=== PATIENT | male | born 1935 | race Two or more races ===

== ENCOUNTER 2017-12-05 09:57 | Emergency (ER) | payer OTHER ==
[~2017-12-05] VITALS: Ht 170.2 cm; Wt 85.0 kg
[2017-12-05] MEDS ORDERED: GLIP5TAB12 PO (10:13)
[2017-12-05] MEDS ORDERED: CHOL100044 MT (10:13)
[2017-12-05] MEDS ORDERED: FINA5TAB11 PO (10:13)
[2017-12-05] MEDS ORDERED: ATOR40TA70 PO (10:13)
[2017-12-05] MEDS ORDERED: TAMS0.4C31 PO (10:13)
[2017-12-05] MEDS ORDERED: CHOL500010 PO (10:13)
[2017-12-05] MEDS ORDERED: METO25TA6 PO (10:13)
[2017-12-05] MEDS ORDERED: LEVO75TA7 PO (10:13)
[2017-12-05] MEDS ORDERED: ALLO100T PO (10:13)
[2017-12-05] MEDS ORDERED: ASPI-1159 PO (10:13)
[2017-12-05 13:15] VITALS: BP 136/82
== END 2017-12-05 13:19 | disposition home or self-care (01) ==
LOC: ER 09:57
DX: S09.8XXA Other specified injuries of head, initial encounter (principal); S43.492A Other sprain of left shoulder joint, initial encounter; E11.9 Type 2 diabetes mellitus without complications; M10.9 Gout, unspecified; E03.9 Hypothyroidism, unspecified; I67.82 Cerebral ischemia; Z79.82 Long term (current) use of aspirin; Z79.84 Long term (current) use of oral hypoglycemic drugs; Z85.038 Personal history of other malignant neoplasm of large intestine; Z98.890 Other specified postprocedural states; W01.0XXA Fall on same level from slipping, tripping and stumbling without subsequent striking against object, initial encounter; Y93.89 Activity, other specified; Y92.488 Other paved roadways as the place of occurrence of the external cause
CPT/HCPCS: 70450; 73030; 73060; 99284

== ENCOUNTER 2019-06-12 07:54 | Emergency (ER) | payer OTHER ==
[~2019-06-12] VITALS: Ht 167.6 cm; Wt 80.0 kg
[~2019-06-12 07:54] MED LIST: ALLO100T PO; ASPI-1393 PO; ATOR40TA70 PO; CHOL100044 MT; CHOL500010 PO; FINA5TAB11 PO; GLIP5TAB12 PO; LEVO75TA7 PO; METO25TA6 PO; TAMS0.4C31 PO
[2019-06-12] MEDS ORDERED: SODIUM CHLORIDE 0.9% 1,000 ML IV ONE (08:10)
[2019-06-12] MEDS ORDERED: ONDANSETRON HCL 4MG/2ML INJ IV STA (08:10)
[2019-06-12] MEDS ORDERED: VANCOMYCIN 1 G PREMIX 200 ML IV ONE (08:15)
[2019-06-12] MEDS ORDERED: PIPERACILLIN/TAZ 3.375G PREMIX 50 ML IV ONE (08:15)
[2019-06-12] MEDS ORDERED: SODIUM CHLORIDE 0.9% 500 ML IV ONE (08:15)
[2019-06-12 08:37] LABS: HEMATOCRIT. 37.2 % (42.0-52.0); HEMOGLOBIN. 12.1 g/dL (14.0-18.0); MEAN CORPUSCULAR HEMOGLOBIN 29.7 pg (28.0-32.0); MEAN CORPUSCULAR VOLUME 91.3 fL (80.0-94.0); MEAN PLATELET VOLUME 8.7 fl (7.4-10.4); PLATELET 493 x1000/uL (130-400); RED BLOOD CELL COUNT 4.08 mill/uL (4.7-6.1); RED CELL DISTRIBUTION WIDTH 15.7 % (11.6-14.6)
[2019-06-12 08:40] LABS: CHLORIDE 106 mEq/L (98-107)
[2019-06-12 08:45] LABS: ETHANOL BLOOD < 10 mg/dL
[2019-06-12 08:53] LABS: INR 1.3; PROTHROMBIN TIME 13.4 sec (9.6-11.0)
[2019-06-12 09:14] LABS: PLATELET ESTIMATE INCREASED
[2019-06-12] MEDS ORDERED: IOHEXOL-300 100 ML BOTTLE ONE (09:52)
[2019-06-12] MEDS ORDERED: FURO-152 PO (10:05)
[2019-06-12 14:14] VITALS: BP 96/59
== END 2019-06-12 15:04 | disposition short-term general hospital (02) ==
LOC: ER 07:54 → EDBEDREQSVC 09:38 → CANBEDREQ 14:20 → ER 15:04
DX: K55.059 Acute (reversible) ischemia of intestine, part and extent unspecified (principal); R65.20 Severe sepsis without septic shock; R41.82 Altered mental status, unspecified; E11.9 Type 2 diabetes mellitus without complications; I25.2 Old myocardial infarction; E03.9 Hypothyroidism, unspecified; I51.9 Heart disease, unspecified; Z95.1 Presence of aortocoronary bypass graft; Z79.899 Other long term (current) drug therapy; Z79.82 Long term (current) use of aspirin
CPT/HCPCS: 36415; 71045; 74177; 76705; 80053; 80320; 83605; 83690; 84484; 85025; 85610; 87040; 87077; 87186; 87804; 93005; 96365; 96367; 96375; 99291; J2405; J2543; J3370; J7030; J7040; Q9967; 96372; G0480

== ENCOUNTER 2020-06-12 06:42 | Emergency (ER) | payer OTHER ==
[~2020-06-12] VITALS: Ht 170.2 cm; Wt 85.0 kg
[~2020-06-12 06:42] MED LIST changes: -ASPI-1393 PO; +ASPI-1497 PO; +FURO-152 PO
[2020-06-12 07:37] LABS: HEMATOCRIT. 35.8 % (42.0-52.0); HEMOGLOBIN. 11.9 g/dL (14.0-18.0); MEAN CORPUSCULAR HEMOGLOBIN 32.5 pg (28.0-32.0); MEAN CORPUSCULAR VOLUME 97.5 fL (80.0-94.0); MEAN PLATELET VOLUME 10.2 fl (7.4-10.4); PLATELET 473 x1000/uL (130-400); RED BLOOD CELL COUNT 3.67 mill/uL (4.7-6.1); RED CELL DISTRIBUTION WIDTH 16.5 % (11.6-14.6)
[2020-06-12 07:40] LABS: CHLORIDE 101 mEq/L (98-107)
[2020-06-12 08:18] LABS: INR 2.4
[2020-06-12 08:22] LABS: PROTHROMBIN TIME 23.9 sec (9.6-11.0)
[2020-06-12] MEDS ORDERED: SODIUM CHLORIDE 0.9% 1,000 ML IV ONE (09:00)
[2020-06-12 09:48] LABS: CLARITY URINE CLOUDY (CLEAR); COLOR URINE YELLOW (YELLOW); KETONES URINE NEGATIVE (NEGATIVE); LEUKOCYTE ESTERASE URINE 2+ (NEGATIVE); NITRITE URINE POSITIVE (NEGATIVE); OCCULT BLOOD URINE 1+ (NEGATIVE); PROTEIN URINE 1+ (NEGATIVE); SPECIFIC GRAVITY URINE 1.019 (1.005-1.030); UROBILINOGEN URINE 0.2 E.U./dL (0.2-1.0)
[2020-06-12 09:55] LABS: PLATELET ESTIMATE INCREASED
[2020-06-12 10:33] LABS: INR 1.1; PROTHROMBIN TIME 11.9 sec (9.6-11.0)
[2020-06-12 11:07] VITALS: BP 136/76
[2020-06-12] MEDS ORDERED: CEFTRIAXONE 1 G PREMIX 50 ML IV ONE (11:30)
== END 2020-06-12 12:06 | disposition short-term general hospital (02) ==
LOC: ER 06:42
DX: N39.0 Urinary tract infection, site not specified (principal); R53.1 Weakness; D72.829 Elevated white blood cell count, unspecified; N19 Unspecified kidney failure; E11.9 Type 2 diabetes mellitus without complications; E05.90 Thyrotoxicosis, unspecified without thyrotoxic crisis or storm; Z95.1 Presence of aortocoronary bypass graft; Z79.82 Long term (current) use of aspirin
CPT/HCPCS: 36415; 71045; 80053; 81003; 83605; 83880; 84484; 85025; 85610; 87086; 87186; 93005; 96361; 96365; 99285; J0696; J7030

== ENCOUNTER 2020-08-12 16:02 | Inpatient (IN) | payer OTHER ==
[~2020-08-12] VITALS: Ht 175.3 cm; Wt 79.5 kg
[2020-08-12] MEDS ORDERED: ACETAMINOPHEN 325MG TABLET PO STA (16:05)
[2020-08-12] MEDS ORDERED: SODIUM CHLORIDE 0.9% 500 ML IV ONE (16:30)
[2020-08-12 17:07] LABS: BG BASE EXCESS -5.2 mmol/L (-2.0-2.0); BG CARBOXYHEMOGLOBIN 1.2 % (0.5-1.5); BG DEOXYHEMOGLOBIN 4.4 % (0.0-5.0); BG FRACTION INSPIRED OXYGEN 21; BG OXYGEN SATURATION 95.5 % (92.0-98.5); BG OXYHEMOGLOBIN 94.4 % (94.0-97.0); BG PCO2 37.9 mmHg (35.0-45.0); BG SAMPLE SITE RIGHT BRACHIAL; BG TOTAL HEMOGLOBIN 11.9 g/dL (12.0-18.0); BG VENT MODE ROOM AIR
[2020-08-12] MEDS ORDERED: CEFTRIAXONE 1 G PREMIX 50 ML IV ONE (17:30)
[2020-08-12] MEDS ORDERED: AZITHROMYCIN 500 MG in DEXT 5% WATER 250 ML IV STA (17:30)
[2020-08-12 17:39] LABS: HEMATOCRIT. 34.9 % (42.0-52.0); HEMOGLOBIN. 11.3 g/dL (14.0-18.0); MEAN CORPUSCULAR HEMOGLOBIN 33.7 pg (28.0-32.0); PLATELET 530 x1000/uL (130-400); RED BLOOD CELL COUNT 3.36 mill/uL (4.7-6.1); RED CELL DISTRIBUTION WIDTH 15.7 % (11.6-14.6)
[2020-08-12 17:45] LABS: CHLORIDE 103 mEq/L (98-107)
[2020-08-12 17:55] LABS: CLARITY URINE TURBID (CLEAR); COLOR URINE YELLOW (YELLOW); CREATINE KINASE 227 IU/L (39-308); KETONES URINE NEGATIVE (NEGATIVE); LEUKOCYTE ESTERASE URINE 3+ (NEGATIVE); NITRITE URINE NEGATIVE (NEGATIVE); OCCULT BLOOD URINE 1+ (NEGATIVE); PROTEIN URINE 1+ (NEGATIVE); SPECIFIC GRAVITY URINE 1.014 (1.005-1.030)
[2020-08-12 18:06] LABS: D-DIMER 4.93 mg/L FEU (<0.50)
[2020-08-12 18:15] LABS: PLATELET ESTIMATE INCREASED
[2020-08-12] MEDS ORDERED: FUROSEMIDE 20MG/2ML VIAL IVP ONE (18:15)
[2020-08-13] MEDS ORDERED: CLONIDINE 0.1MG TABLET PO PRN (09:45)
[2020-08-13] MEDS ORDERED: GUAIFENESIN 200MG/10ML SUGAR FREE UDC PO PRN (09:45)
[2020-08-13] MEDS ORDERED: ONDANSETRON HCL 4MG/2ML INJ IV PRN (09:45)
[2020-08-13] MEDS ORDERED: CEFTRIAXONE 1 G PREMIX 50 ML IV SCH (09:45)
[2020-08-13] MEDS ORDERED: ACETAMINOPHEN 325MG TABLET PO PRN (09:45)
[2020-08-13] MEDS ORDERED: MAGNESIUM/ALUMINUM HYDROXIDE/SIMETHICONE 30ML UDC PO PRN (09:45)
[2020-08-13] MEDS ORDERED: HYDROCODONE/ACETAMINOPHEN 5/325MG TABLET PO PRN (09:45)
[2020-08-13] MEDS ORDERED: AZITHROMYCIN 500 MG in DEXT 5% WATER 250 ML IV SCH ×2 (09:45→18:00)
[2020-08-13] MEDS ORDERED: ENOXAPARIN 40MG/0.4ML SYR SUBCUT SCH (09:45)
[2020-08-13] MEDS ORDERED: DOCUSATE SODIUM 100MG CAPSULE PO PRN (09:45)
[2020-08-13] MEDS ORDERED: CEFTRIAXONE 1,000 MG in DEXTROSE 5% WATER 50 ML IV SCH ×2 (10:00→18:00)
[2020-08-13] MEDS ORDERED: DEXTROSE 50% WATER 50ML SYRINGE IV PRN (11:00)
[2020-08-13] MEDS: BLOOD SUGAR DIAGNOSTIC STRIP TEST SCH ×3 (11:26→21:29)
[2020-08-13] MEDS: ALLOPURINOL 100 MG TABLET PO SCH (11:30)
[2020-08-13 12:00] VITALS: BP 130/68
[2020-08-13] MEDS: LEVOTHYROXINE SODIUM 75MCG TABLET PO SCH (13:21)
[2020-08-13] MEDS: SODIUM CHLORIDE 0.9% 1,000 ML IV SCH (13:21)
[2020-08-13] MEDS: FINASTERIDE 5MG TABLET PO SCH (13:21)
[2020-08-13] MEDS: INSULIN LISPRO 100 UNITS/ML SUBCUT SCH ×3 (13:24→21:45)
[2020-08-13] MEDS: TAMSULOSIN HCL 0.4MG SR CAPSULE PO SCH (13:25)
[2020-08-13 13:57] LABS: HEMATOCRIT. 35.3 % (42.0-52.0); HEMOGLOBIN. 11.6 g/dL (14.0-18.0); MEAN CORPUSCULAR HEMOGLOBIN 33.9 pg (28.0-32.0); MEAN PLATELET VOLUME 9.9 fl (7.4-10.4); PLATELET 580 x1000/uL (130-400); RED BLOOD CELL COUNT 3.43 mill/uL (4.7-6.1); RED CELL DISTRIBUTION WIDTH 15.2 % (11.6-14.6)
[2020-08-13 14:27] LABS: PLATELET ESTIMATE INCREASED
[2020-08-13 15:25] VITALS: BP 138/70
[2020-08-13 16:00] VITALS: BP 129/66
[2020-08-13] MEDS: CEFTAZIDIME PENTAHYDRATE 1 G in DEXTROSE 5% WATER 50 ML IV SCH (19:44)
[2020-08-13 20:00] VITALS: BP 129/63
[2020-08-14] VITALS: BP 127/62
[2020-08-14] MEDS: SODIUM CHLORIDE 0.9% 1,000 ML IV SCH ×2 (00:16→11:58)
[2020-08-14 04:00] VITALS: BP 128/56
[2020-08-14] MEDS: BLOOD SUGAR DIAGNOSTIC STRIP TEST SCH ×2 (06:19→11:56)
[2020-08-14] MEDS: LEVOTHYROXINE SODIUM 75MCG TABLET PO SCH (06:19)
[2020-08-14 06:43] LABS: CHLORIDE 108 mEq/L (98-107)
[2020-08-14 06:47] LABS: HEMATOCRIT. 33.4 % (42.0-52.0); HEMOGLOBIN. 10.9 g/dL (14.0-18.0); MEAN CORPUSCULAR HEMOGLOBIN 33.9 pg (28.0-32.0); MEAN CORPUSCULAR VOLUME 103.4 fL (80.0-94.0); MEAN PLATELET VOLUME 10.1 fl (7.4-10.4); PLATELET 591 x1000/uL (130-400); RED BLOOD CELL COUNT 3.23 mill/uL (4.7-6.1); RED CELL DISTRIBUTION WIDTH 15.5 % (11.6-14.6)
[2020-08-14 07:00] LABS: LDL CHOLESTEROL 34 mg/dL (5-100)
[2020-08-14 07:02] LABS: HDL CHOLESTEROL 36 mg/dL (40-59)
[2020-08-14 08:00] VITALS: BP 111/66
[2020-08-14] MEDS: CEFTAZIDIME PENTAHYDRATE 1 G in DEXTROSE 5% WATER 50 ML IV SCH (08:59)
[2020-08-14] MEDS: FINASTERIDE 5MG TABLET PO SCH (09:00)
[2020-08-14] MEDS ORDERED: ENOXAPARIN 30MG/0.3ML SYR SUBCUT SCH (09:00)
[2020-08-14] MEDS ORDERED: CEFTAZIDIME PENTAHYDRATE 1 G in DEXTROSE 5% WATER 50 ML IV SCH (09:00)
[2020-08-14] MEDS: TAMSULOSIN HCL 0.4MG SR CAPSULE PO SCH (09:00)
[2020-08-14] MEDS: INSULIN LISPRO 100 UNITS/ML SUBCUT SCH ×2 (09:01→12:02)
[2020-08-14 11:43] LABS: T4 FREE 1.2 ng/dL (0.76-1.46)
[2020-08-14] MEDS: ALLOPURINOL 100 MG TABLET PO SCH (11:56)
[2020-08-14 12:00] VITALS: BP 135/62
[2020-08-14 13:01] LABS: PLATELET ESTIMATE INCREASED
[2020-08-14 13:33] VITALS: BP 135/62
[2020-08-15 08:08] LABS: ANTI-NUCLEAR ANTIBODIES DIRECT Negative (Negative)
== END 2020-08-14 16:00 | disposition home or self-care (01) | DRG 871 ==
LOC: ER 16:02 → MICUSO 18:20 → EDBEDREQ 18:23 → 7EST 08-13 09:01
PROVIDERS: ADMIT Hospitalist; ATTEND Hospitalist
DX: A41.9 Sepsis, unspecified organism (principal); U07.1 COVID-19; I13.0 Hypertensive heart and chronic kidney disease with heart failure and stage 1 through stage 4 chronic kidney disease, or unspecified chronic kidney disease; N17.9 Acute kidney failure, unspecified; N39.0 Urinary tract infection, site not specified; E03.9 Hypothyroidism, unspecified; E11.22 Type 2 diabetes mellitus with diabetic chronic kidney disease; I25.10 Atherosclerotic heart disease of native coronary artery without angina pectoris; I50.9 Heart failure, unspecified; M10.9 Gout, unspecified; N18.9 Chronic kidney disease, unspecified; B96.20 Unspecified Escherichia coli [E. coli] as the cause of diseases classified elsewhere; N40.0 Benign prostatic hyperplasia without lower urinary tract symptoms; J44.9 Chronic obstructive pulmonary disease, unspecified; D64.9 Anemia, unspecified; Z88.8 Allergy status to other drugs, medicaments and biological substances; I25.2 Old myocardial infarction; Z79.899 Other long term (current) drug therapy; Z79.84 Long term (current) use of oral hypoglycemic drugs; Z95.1 Presence of aortocoronary bypass graft; Z82.49 Family history of ischemic heart disease and other diseases of the circulatory system
CPT/HCPCS: 36415; 36600; 71045; 74176; 76770; 80048; 80053; 80061; 81003; 82375; 82550; 82728; 82805; 82962; 83036; 83605; 83615; 83735; 83880; 84145; 84439; 84443; 84484; 85025; 85379; 85384; 86038; 86140; 86160; 87077; 87186; 87635; 93005; 99291; J0456; J0696; J0713; J1650; J1815; J1940; J7030; J7040; J7060